=== PATIENT | female | born 1995 | race African-American/Black ===

== ENCOUNTER 2017-12-20 20:55 | Emergency (ER) | payer OTHER ==
[~2017-12-20] VITALS: Ht 154.9 cm; Wt 50.8 kg
[2017-12-21] MEDS ORDERED: FLAGYL500MG PO (07:13)
[2017-12-21] MEDS ORDERED: CIPRO500 MG PO (07:13)
== END 2017-12-21 08:29 | disposition home or self-care (01) ==
LOC: ER 20:55 → EDBD 21:03 → ER 21:03
DX: K62.89 Other specified diseases of anus and rectum (principal)

== ENCOUNTER 2019-03-01 13:22 | Emergency (ER) | payer OTHER ==
[~2019-03-01] VITALS: Ht 154.9 cm; Wt 57.6 kg
[~2019-03-01 13:22] MED LIST: CIPRO500 MG PO; FLAGYL500MG PO
== END 2019-03-01 17:18 | disposition home or self-care (01) ==
LOC: ER 13:22
DX: B34.9 Viral infection, unspecified (principal)